=== PATIENT | male | born 1960 | race Two or more races ===

== ENCOUNTER 2018-01-23 11:33 | Observation (INO) | payer BC, OTHER ==
[2018-01-23] MEDS ORDERED: HYDROmorphone 1 MG/ML Syringe IVPUSH ONE (12:01)
--- NOTE | 2018-01-23 12:13 | EDM.PDOC ---
ED HPI GENERAL MEDICAL PROBLEM - General Chief Complaint: Trauma Stated Complaint: DIFFICULTY BREATHING AND FELL OFF A HORSE Time Seen by Provider: 01/23/18 12:08 - History of Present Illness INITIAL COMMENTS - FREE TEXT/NARRATIVE: HISTORY AND PHYSICAL: History of present illness: Patient's 57-year-old white male presents status post fall from a horse in which he injured his upper and lower back and right side he denies loss of consciousness he has pleuritic chest discomfort with this denies nausea vomiting denies numbness or weakness. Review of systems: As per history of present illness and below otherwise all systems reviewed and negative. Past medical history: As per history of present illness and as reviewed below otherwise noncontributory. Surgical history: As per history of present illness and as reviewed below otherwise noncontributory. Social history: No reported history of drug or alcohol abuse. Family history: As per history of present illness and as reviewed below otherwise noncontributory. Physical exam: HEENT: Prosthetic right ear noted otherwise Atraumatic, normocephalic, pupils reactive, negative for conjunctival pallor or scleral icterus, mucous membranes moist, throat clear, neck supple, nontender, trachea midline. Lungs: Clear to auscultation, breath sounds equal bilaterally, chest nontender. Heart: S1S2, regular, negative for clicks, rubs, or JVD. Abdomen: Soft, nondistended, nontender. Negative for masses or hepatosplenomegaly. Negative for costovertebral tenderness. Pelvis: Stable nontender. Genitourinary: Deferred. Rectal: Deferred. Extremities: Atraumatic, negative for cords or calf pain. Neurovascular unremarkable. Neuro: Awake, alert, oriented. Cranial nerves II through XII unremarkable. Cerebellum unremarkable. Motor and sensory unremarkable throughout. Exam nonfocal. Back: Patient has some right posterior rib tenderness is nonlocalizing no crepitation. Diagnostics: CT brain C-spine chest abdomen pelvis with thoracic lumbar reconstruction Therapeutics: Dilaudid 1 mg IV Zofran 4 mg IV when necessary Impression: #1 observation status post fall from horse #2 multiple blunt trauma Definitive disposition and diagnosis as appropriate pending reevaluation and review of above. Right upper back Pain Score (Numeric/FACES): 8 - Related Data Allergies Allergy/AdvReac Type Severity Reaction Status Date / Time No Known Allergies Allergy Verified 04/18/16 14:25 Home Meds: Home Meds . [No Known Home Meds] 01/23/18 [History] Past Medical History Cardiovascular History: Reports: Hypertension Endocrine/Metabolic History: Reports: Diabetes, Type II, Obesity/BMI 30+ Social & Family History - Family History Family Medical History: Noncontributory - Tobacco Use Smoking Status *Q: Never Smoker - Recreational Drug Use Recreational Drug Use: No Review of Systems - Review of Systems Review Of Systems: ROS reveals no pertinent complaints other than HPI. ED EXAM, GENERAL - Physical Exam Exam: See Below (See dictation) Course - Vital Signs Last Recorded V/S: Last Vital Signs Temp 36.3 C 01/23/18 11:33 Pulse 89 01/23/18 11:33 Resp 20 01/23/18 11:33 BP 149/90 H 01/23/18 11:33 Pulse Ox 95 01/23/18 11:33 - Orders/Labs/Meds Orders: Active Orders 24 hr Category Date Time Status EKG 12 Lead [EKG Documentation Completion] [RC] STAT Care 01/23/18 13:01 Active Abdomen Pelvis w Cont [CT] Stat Exams 01/23/18 11:37 Taken Cervical Spine wo Cont [CT] Stat Exams 01/23/18 11:35 Taken Chest w Cont [CT] Stat Exams 01/23/18 11:35 Taken Head wo Cont [CT] Stat Exams 01/23/18 11:35 Taken Lumbar Spine wo Cont [CT] Stat Exams 01/23/18 11:35 Taken Thoracic Spine wo Cont [CT] Stat Exams 01/23/18 11:35 Taken COMPREHENSIVE METABOLIC PN,CMP [CHEM] Stat Lab 01/23/18 11:40 Received INR,PT,PROTHROMBIN TIME [COAG] Stat Lab 01/23/18 11:40 Received Labs: Laboratory Tests 01/23/18 Range/Units 11:40 WBC 7.35 (4.0-11.0) K/uL RBC 5.56 (4.50-5.90) M/uL Hgb 16.9 (13.0-17.0) g/dL Hct 48.4 (38.0-50.0) % MCV 87.1 (80.0-98.0) fL MCH 30.4 (27.0-32.0) pg MCHC 34.9 (31.0-37.0) g/dL RDW Std Deviation 41.7 (28.0-62.0) fl RDW Coeff of Alejnadra 13 (11.0-15.0) % Plt Count 166 (150-400) K/uL MPV 10.90 (7.40-12.00) fL Neut % (Auto) 65.0 (48.0-80.0) % Lymph % (Auto) 22.9 (16.0-40.0) % [place] % (Auto) 9.7 (0.0-15.0) % Eos % (Auto) 1.9 (0.0-7.0) % Baso % (Auto) 0.5 (0.0-1.5) % Neut # (Auto) 4.8 (1.4-5.7) K/uL Lymph # (Auto) 1.7 (0.6-2.4) K/uL [place] # (Auto) 0.7 (0.0-0.8) K/uL Eos # (Auto) 0.1 (0.0-0.7) K/uL Baso # (Auto) 0.0 (0.0-0.1) K/uL Nucleated RBC % 0.0 /100WBC Nucleated RBCs # 0 K/uL Meds: Medications Discontinued Medications Generic Name Dose Route Start Last Admin Trade Name Freq PRN Reason Stop Dose Admin Hydromorphone HCl 1 mg 01/23/18 12:01 01/23/18 12:09 Dilaudid IVPUSH 01/23/18 12:02 1 mg ONETIME ONE Administration Iopamidol 96 ml 01/23/18 12:20 01/23/18 12:21 Isovue Multipack-370 (76%) IVPUSH 01/23/18 12:21 96 ml ONETIME ONE Administration Departure - Departure Time of Disposition: 13:19 Disposition: Refer to Observation Condition: Good Clinical Impression: Multiple rib fractures, Trauma - Discharge Information Referrals: PCP,None [Primary Care Provider] - Forms: ED Department Discharge - My Orders Last 24 Hours: My Active Orders 01/23/18 11:35 Cervical Spine wo Cont [CT] Stat Chest w Cont [CT] Stat Head wo Cont [CT] Stat Lumbar Spine wo Cont [CT] Stat Thoracic Spine wo Cont [CT] Stat 01/23/18 11:37 Abdomen Pelvis w Cont [CT] Stat 01/23/18 11:40 COMPREHENSIVE METABOLIC PN,CMP [CHEM] Stat INR,PT,PROTHROMBIN TIME [COAG] Stat 01/23/18 13:01 EKG 12 Lead [EKG Documentation Completion] [RC] STAT - Assessment/Plan Last 24 Hours: My Active Orders 01/23/18 11:35 Cervical Spine wo Cont [CT] Stat Chest w Cont [CT] Stat Head wo Cont [CT] Stat Lumbar Spine wo Cont [CT] Stat Thoracic Spine wo Cont [CT] Stat 01/23/18 11:37 Abdomen Pelvis w Cont [CT] Stat 01/23/18 11:40 COMPREHENSIVE METABOLIC PN,CMP [CHEM] Stat INR,PT,PROTHROMBIN TIME [COAG] Stat 01/23/18 13:01 EKG 12 Lead [EKG Documentation Completion] [RC] STAT
[2018-01-23] MEDS ORDERED: Iopamidol 755 MG/ML 200 ML Multipack Bottle IVPUSH ONE (12:20)
[2018-01-23 13:22] LABS: CHLORIDE,CL 102 mmol/L (98-107); SODIUM,NA 135 mmol/L (136-148)
--- NOTE | 2018-01-23 14:10 | PCM.HP ---
H&P History of Present Illness - General Date of Service: 01/23/18 Admit Problem/Dx: Admission Diagnosis/Problem Admission Diagnosis/Problem Trauma of chest Source of Information: Patient History Limitations: Reports: No Limitations - History of Present Illness Initial Comments - Free Text/Narative: Patient was riding a horse today when he was bucked off. He fell on his right shoulder and had loss of conciousness. He woke up and had difficulty breathing. He got up and walked to help. He finds that sitting up and coughing causes pain along his upper chest and shoulder. He denies fevers, chills, nausea, vomiting, loss of motor or neurologic function. Denies pain anywhere else. He was brought here by his . CT head, cervical, thoracic, lumbar, chest abdomen and pelvis were normal other than posterior non-displaced rib fractures of the 3-6 on the right. Right upper back Pain Score (Numeric/FACES): 8 - Related Data Allergies/Adverse Reactions: Allergies Allergy/AdvReac Type Severity Reaction Status Date / Time No Known Allergies Allergy Verified 09/24/15 14:25 Home Medications: Home Meds . [No Known Home Meds] 01/23/18 [History] Past Medical History Cardiovascular History: Reports: Hypertension Respiratory History: Reports: Other (See Below) (Obstructive sleep apnea) Endocrine/Metabolic History: Reports: Diabetes, Type II, Obesity/BMI 30+ - Past Surgical History GI Surgical History: Reports: Appendectomy Social & Family History - Family History Family Medical History: Noncontributory - Tobacco Use Smoking Status *Q: Never Smoker - Recreational Drug Use Recreational Drug Use: No H&P Review of Systems - Review of Systems: Review Of Systems: ROS reveals no pertinent complaints other than HPI. General: Reports: No Symptoms HEENT: Reports: No Symptoms Pulmonary: Reports: Shortness of Breath, Pleuritic Chest Pain Cardiovascular: Reports: No Symptoms Gastrointestinal: Reports: No Symptoms Genitourinary: Reports: No Symptoms Musculoskeletal: Reports: No Symptoms Skin: Reports: No Symptoms Neurological: Reports: No Symptoms Exam - Exam Exam: See Below - Vital Signs Vital Signs: Last Vital Signs Temp 36.3 C 01/23/18 11:33 Pulse 89 01/23/18 11:33 Resp 20 01/23/18 11:33 BP 149/90 H 01/23/18 11:33 Pulse Ox 95 01/23/18 11:33 Weight: 143 kg - Exam General: Alert, Oriented, Cooperative HEENT: Conjunctiva Clear, Hearing Intact, Mucosa Moist & Grubbs, Nares Patent, Posterior Pharynx Clear, Pupils Equal, Pupils Reactive Neck: Supple, Trachea Midline Lungs: Clear to Auscultation, Decreased Breath Sounds (bilateral bases), Other ( Patient splinting with breathing and taking shorter than normal breaths ) Cardiovascular: Regular Rate, Regular Rhythm GI/Abdominal Exam: Soft, Non-Tender, No Distention, No Mass Back Exam: Normal Inspection, Full Range of Motion Extremities: Normal Inspection, Normal Range of Motion, Non-Tender Skin: Warm, Dry, Intact Neurological: Cranial Nerves Intact Neuro Extensive - Mental Status: Alert, Oriented x3, Normal Mood/Affect - Patient Data Lab Results Last 24 hrs: Laboratory Results - last 24 hr 01/23/18 01/23/18 01/23/18 Range/Units 11:40 11:40 11:40 WBC 7.35 (4.0-11.0) K/uL RBC 5.56 (4.50-5.90) M/uL Hgb 16.9 (13.0-17.0) g/dL Hct 48.4 (38.0-50.0) % MCV 87.1 (80.0-98.0) fL MCH 30.4 (27.0-32.0) pg MCHC 34.9 (31.0-37.0) g/dL RDW Std Deviation 41.7 (28.0-62.0) fl RDW Coeff of Alejandra 13 (11.0-15.0) % Plt Count 166 (150-400) K/uL MPV 10.90 (7.40-12.00) fL Neut % (Auto) 65.0 (48.0-80.0) % Lymph % (Auto) 22.9 (16.0-40.0) % [place] % (Auto) 9.7 (0.0-15.0) % Eos % (Auto) 1.9 (0.0-7.0) % Baso % (Auto) 0.5 (0.0-1.5) % Neut # (Auto) 4.8 (1.4-5.7) K/uL Lymph # (Auto) 1.7 (0.6-2.4) K/uL [place] # (Auto) 0.7 (0.0-0.8) K/uL Eos # (Auto) 0.1 (0.0-0.7) K/uL Baso # (Auto) 0.0 (0.0-0.1) K/uL Nucleated RBC % 0.0 /100WBC Nucleated RBCs # 0 K/uL INR 1.09 Sodium 135 L (136-148) mmol/L Potassium 3.9 (3.5-5.1) mmol/L Chloride 102 (98-107) mmol/L Carbon Dioxide 24.3 (21.0-32.0) mmol/L BUN 14 (7.0-18.0) mg/dL Creatinine 1.1 (0.8-1.3) mg/dL Est Cr Clr Drug Dosing 79.86 mL/min Estimated GFR (MDRD) > 60.0 ml/min Glucose 345 H (74-106) mg/dL Calcium 8.7 (8.5-10.1) mg/dL Total Bilirubin 0.5 (0.2-1.0) mg/dL AST 79 H (15-37) IU/L ALT 111 H (14-63) IU/L Alkaline Phosphatase 121 H (46-116) U/L Total Protein 7.9 (6.4-8.2) g/dL Albumin 3.7 (3.4-5.0) g/dL Globulin 4.2 H (2.0-3.5) g/dL Albumin/Globulin Ratio 0.9 L (1.3-2.8) Result Diagrams: 01/23/18 11:40 01/23/18 11:40 - Problem List (1) Loss of consciousness SNOMED Code(s): 223142118, 361074778 ICD Code: R40.20 - UNSPECIFIED COMA Status: Acute Current Visit: Yes (2) Contusion of wrist, right SNOMED Code(s): 75239646886751759 ICD Code: S60.211A - CONTUSION OF RIGHT WRIST, INITIAL ENCOUNTER Status: Acute Current Visit: No Qualifiers: Encounter type: initial encounter Qualified Code(s): S60.211A - Contusion of right wrist, initial encounter (3) Multiple rib fractures SNOMED Code(s): 7388890 ICD Code: S22.49XA - MULTIPLE FRACTURES OF RIBS, UNSP SIDE, INIT FOR CLOS FX Status: Acute Current Visit: Yes Problem List Initiated/Reviewed/Updated: Yes Orders Last 24hrs: Active Orders 24 hr Category Date Time Status Admission Status [Patient Status] [ADT] Stat ADT 01/23/18 13:19 Active EKG 12 Lead [EKG Documentation Completion] [RC] STAT Care 01/23/18 13:01 Active Abdomen Pelvis w Cont [CT] Stat Exams 01/23/18 11:37 Taken Cervical Spine wo Cont [CT] Stat Exams 01/23/18 11:35 Taken Chest w Cont [CT] Stat Exams 01/23/18 11:35 Taken Head wo Cont [CT] Stat Exams 01/23/18 11:35 Taken Lumbar Spine wo Cont [CT] Stat Exams 01/23/18 11:35 Taken Thoracic Spine wo Cont [CT] Stat Exams 01/23/18 11:35 Taken Assessment/Plan Comment:: Will watch patient overnight given multiple rib fractures and MARCOS. will be bringing his CPAP from home to use tonight. Pain control with IV dilaudid, percocet, toradol, and flexeril.
[2018-01-23] MEDS ORDERED: Acetaminophen/oxyCODONE 325-5 MG Tab PO PRN (14:14)
[2018-01-23] MEDS ORDERED: HYDROmorphone 2 MG/ML Syringe IVPUSH PRN (14:15)
[2018-01-23] MEDS ORDERED: Cyclobenzaprine 5 MG Tab PO PRN (14:15)
[2018-01-23] MEDS ORDERED: diphenhydrAMINE 25 MG Cap PO PRN (14:16)
[2018-01-23] MEDS ORDERED: Ondansetron 4 MG/2 ML SDV IVPUSH PRN (14:16)
[2018-01-23] MEDS ORDERED: HYDROmorphone 1 MG/ML Syringe ONE (14:54)
[2018-01-23] MEDS ORDERED: HYDROmorphone 2 MG/ML SDV IVPUSH PRN (15:00)
[2018-01-23] MEDS: Ketorolac 10 MG Tab PO SCH ×2 (15:10→21:05)
[2018-01-23] MEDS: Insulin Aspart 100 Units/ML 3 ML Pen SUBCUT SCH (17:54)
[2018-01-24] MEDS: Ketorolac 10 MG Tab PO SCH ×2 (01:33→08:17)
[2018-01-24 03:38] VITALS: BP 157/90
[2018-01-24] MEDS: Insulin Aspart 100 Units/ML 3 ML Pen SUBCUT SCH (07:32)
--- NOTE | 2018-01-24 08:40 | PCM.DCSUM1 ---
Discharge Summary - Hospital Course Free Text/Narrative:: Rib fractures, loc HPI Initial Comments: Patient was riding a horse today when he was bucked off. He fell on his right shoulder and had loss of conciousness. He woke up and had difficulty breathing. He got up and walked to help. He found that sitting up and coughing caused pain along his upper chest and shoulder. He denied fevers, chills, nausea, vomiting, loss of motor or neurologic function. Denies pain anywhere else. He was brought here by his . CT head, cervical, thoracic, lumbar, chest abdomen and pelvis were normal other than posterior non-displaced rib fractures of the 3-6 on the right. He was admitted overnight for close monitoring of his respiratory status. His hgb A1C was 8.8 as he has type 2 DM and does not treat it. His blood sugars ran high and he was placed on low dose sliding scale insulin. He was stable overnight with his BIPAP. He was scheduled on Toradol and did well with this. He was ambulating and pain free this morning. He was cleared for discharge. - Discharge Data Discharge Date: 01/24/18 Discharge Disposition: Home, Self-Care 01 Condition: Fair - Discharge Diagnosis/Problem(s) (1) Loss of consciousness SNOMED Code(s): 035325288, 183393756 ICD Code: R40.20 - UNSPECIFIED COMA Status: Acute Current Visit: Yes (2) Contusion of wrist, right SNOMED Code(s): 38293112084023660 ICD Code: S60.211A - CONTUSION OF RIGHT WRIST, INITIAL ENCOUNTER Status: Acute Current Visit: No Qualifiers: Encounter type: initial encounter Qualified Code(s): S60.211A - Contusion of right wrist, initial encounter (3) Multiple rib fractures SNOMED Code(s): 3781758 ICD Code: S22.49XA - MULTIPLE FRACTURES OF RIBS, UNSP SIDE, INIT FOR CLOS FX Status: Acute Current Visit: Yes - Patient Summary/Data Consults: Consultations 01/23/18 14:16 Respiratory Care Assess and Treatment [CONS] Routine - Patient Instructions Diet: Regular Diet as Tolerated Activity: No Lifting Over 25 Pounds (for two weeks ), No Strenuous Activities ( for two weeks ), Rest and Relax Today Driving: Do Not Drive (for a couple days ) Showering/Bathing: October Shower Notify Provider of: Fever, Increased Pain Other/Special Instructions: Follow up with pcp for diabetes management - Discharge Plan *PRESCRIPTION DRUG MONITORING PROGRAM REVIEWED*: Yes *COPY OF PRESCRIPTION DRUG MONITORING REPORT IN PATIENT FREDY: Yes Home Medications: Home Meds . [No Known Home Meds] 01/23/18 [History] Forms: ED Department Discharge Referrals: PCP,None [Primary Care Provider] - - Discharge Summary/Plan Comment DC Time >30 min.: No - General Info Functional Status: Reports: Pain Controlled, Tolerating Diet, Ambulating, Urinating - Review of Systems General: Reports: No Symptoms Pulmonary: Reports: No Symptoms Cardiovascular: Reports: No Symptoms Gastrointestinal: Reports: No Symptoms Musculoskeletal: Reports: No Symptoms - Patient Data Vitals - Most Recent: Last Vital Signs Temp 36.2 C 01/24/18 03:37 Pulse 67 01/24/18 03:37 Resp 18 01/24/18 03:37 BP 157/90 H 01/24/18 03:37 Pulse Ox 96 01/24/18 03:39 Weight - Most Recent: 143.244 kg I&O - Last 24 hours: Intake & Output 01/23/18 01/24/18 01/24/18 22:59 06:59 14:59 Intake Total 600 Balance 600 Lab Results - Last 24 hrs: Laboratory Results - last 24 hr 01/23/18 01/23/18 01/23/18 Range/Units 11:40 11:40 11:40 WBC 7.35 (4.0-11.0) K/uL RBC 5.56 (4.50-5.90) M/uL Hgb 16.9 (13.0-17.0) g/dL Hct 48.4 (38.0-50.0) % MCV 87.1 (80.0-98.0) fL MCH 30.4 (27.0-32.0) pg MCHC 34.9 (31.0-37.0) g/dL RDW Std Deviation 41.7 (28.0-62.0) fl RDW Coeff of Alejandra 13 (11.0-15.0) % Plt Count 166 (150-400) K/uL MPV 10.90 (7.40-12.00) fL Neut % (Auto) 65.0 (48.0-80.0) % Lymph % (Auto) 22.9 (16.0-40.0) % [place] % (Auto) 9.7 (0.0-15.0) % Eos % (Auto) 1.9 (0.0-7.0) % Baso % (Auto) 0.5 (0.0-1.5) % Neut # (Auto) 4.8 (1.4-5.7) K/uL Lymph # (Auto) 1.7 (0.6-2.4) K/uL [place] # (Auto) 0.7 (0.0-0.8) K/uL Eos # (Auto) 0.1 (0.0-0.7) K/uL Baso # (Auto) 0.0 (0.0-0.1) K/uL Nucleated RBC % 0.0 /100WBC Nucleated RBCs # 0 K/uL INR 1.09 Sodium 135 L (136-148) mmol/L Potassium 3.9 (3.5-5.1) mmol/L Chloride 102 (98-107) mmol/L Carbon Dioxide 24.3 (21.0-32.0) mmol/L BUN 14 (7.0-18.0) mg/dL Creatinine 1.1 (0.8-1.3) mg/dL Est Cr Clr Drug Dosing 79.86 mL/min Estimated GFR (MDRD) > 60.0 ml/min Glucose 345 H (74-106) mg/dL POC Glucose (60-110) mg/dL Hemoglobin A1c (4.5-6.2) % Calcium 8.7 (8.5-10.1) mg/dL Total Bilirubin 0.5 (0.2-1.0) mg/dL AST 79 H (15-37) IU/L ALT 111 H (14-63) IU/L Alkaline Phosphatase 121 H (46-116) U/L Total Protein 7.9 (6.4-8.2) g/dL Albumin 3.7 (3.4-5.0) g/dL Globulin 4.2 H (2.0-3.5) g/dL Albumin/Globulin Ratio 0.9 L (1.3-2.8) 01/23/18 01/23/18 01/24/18 Range/Units 11:40 16:47 06:30 WBC (4.0-11.0) K/uL RBC (4.50-5.90) M/uL Hgb (13.0-17.0) g/dL Hct (38.0-50.0) % MCV (80.0-98.0) fL MCH (27.0-32.0) pg MCHC (31.0-37.0) g/dL RDW Std Deviation (28.0-62.0) fl RDW Coeff of Alejandra (11.0-15.0) % Plt Count (150-400) K/uL MPV (7.40-12.00) fL Neut % (Auto) (48.0-80.0) % Lymph % (Auto) (16.0-40.0) % [place] % (Auto) (0.0-15.0) % Eos % (Auto) (0.0-7.0) % Baso % (Auto) (0.0-1.5) % Neut # (Auto) (1.4-5.7) K/uL Lymph # (Auto) (0.6-2.4) K/uL [place] # (Auto) (0.0-0.8) K/uL Eos # (Auto) (0.0-0.7) K/uL Baso # (Auto) (0.0-0.1) K/uL Nucleated RBC % /100WBC Nucleated RBCs # K/uL INR Sodium (136-148) mmol/L Potassium (3.5-5.1) mmol/L Chloride (98-107) mmol/L Carbon Dioxide (21.0-32.0) mmol/L BUN (7.0-18.0) mg/dL Creatinine (0.8-1.3) mg/dL Est Cr Clr Drug Dosing mL/min Estimated GFR (MDRD) ml/min Glucose (74-106) mg/dL POC Glucose 249 H 181 H (60-110) mg/dL Hemoglobin A1c 8.8 H (4.5-6.2) % Calcium (8.5-10.1) mg/dL Total Bilirubin (0.2-1.0) mg/dL AST (15-37) IU/L ALT (14-63) IU/L Alkaline Phosphatase (46-116) U/L Total Protein (6.4-8.2) g/dL Albumin (3.4-5.0) g/dL Globulin (2.0-3.5) g/dL Albumin/Globulin Ratio (1.3-2.8) Med Orders - Current: Current Medications Cyclobenzaprine HCl (Flexeril) 5 mg PO TID PRN PRN Reason: Pain Diphenhydramine HCl (Benadryl) 25 mg PO Q4H PRN PRN Reason: Itching Hydromorphone HCl (Dilaudid) 1 mg IVPUSH Q2H PRN PRN Reason: pain Last Admin: 01/23/18 19:33 Dose: 1 mg Insulin Aspart (Novolog) 0 unit SUBCUT TIDAC AMANUEL; Protocol Last Admin: 01/24/18 07:32 Dose: 1 units Ketorolac Tromethamine (Toradol) 10 mg PO Q6H [facility] Stop: 01/28/18 14:16 Last Admin: 01/24/18 08:17 Dose: 10 mg Ondansetron HCl (Zofran) 4 mg IVPUSH Q6H PRN PRN Reason: Nausea/Vomiting Oxycodone/Acetaminophen (Percocet 325-5 Mg) 2 tab PO Q4H PRN PRN Reason: Pain Discontinued Medications Hydromorphone HCl (Dilaudid) 1 mg IVPUSH ONETIME ONE Stop: 01/23/18 12:02 Last Admin: 01/23/18 12:09 Dose: 1 mg Hydromorphone HCl (Dilaudid) 1 mg IVPUSH Q2H PRN PRN Reason: pain Last Admin: 01/23/18 14:55 Dose: 1 mg Hydromorphone HCl (Dilaudid) Confirm Administered Dose 1 mg .ROUTE .STK-MED ONE Stop: 01/23/18 14:55 Last Admin: 01/23/18 15:03 Dose: Not Given Iopamidol (Isovue Multipack-370 (76%)) 96 ml IVPUSH ONETIME ONE Stop: 01/23/18 12:21 Last Admin: 01/23/18 12:21 Dose: 96 ml - Exam General: Reports: Alert, Oriented HEENT: Reports: Pupils Equal, Pupils Reactive Neck: Reports: Supple Lungs: Reports: Normal Respiratory Effort, Other (Slightly decreased breath sound on the right side, however moving air much better through the right side this morning. ) Cardiovascular: Reports: Regular Rate, Regular Rhythm GI/Abdominal Exam: Soft
--- NOTE | 2018-01-25 11:03 | CT ---
EXAM DATE: 01/23/18 PATIENT'S AGE: 57 Patient: DARÍO COTA Facility: [place], [place] Site . Site : 1960 Study: CT Head wo natividad [id number]/[id number] 12:05:16 PM Ordering Physician: Doctor Richards Final Report: INDICATION: Trauma. Bucked off horse. COMPARISON: none TECHNIQUE: A CT volumetric acquisition was performed of the brain without IV contrast. FINDINGS: There is no evidence of a subdural or epidural hematoma. There is no evidence of subarachnoid hemorrhage or intraparenchymal bleeding. The CT images reveal a normal appearance of the cerebral ventricles and basal cisterns. There is no evidence of localized tissue infarction or mass effect. There is normal pink white matter differentiation. The mastoid air cells and middle ear cavities are clear. The calvarium appears intact. There is normal aeration of the visualized paranasal sinuses. IMPRESSION: Negative head CT. Please note that all CT scans at this facility use dose modulation, iterative reconstruction, and/or weight-based dosing when appropriate to reduce radiation dose to as low as reasonably achievable. Dictated by Meir Mabry MD @ Jan 23 2018 12:24PM (Electronic Signature) Report Signed by Proxy. CAMILO
--- NOTE | 2018-01-25 11:04 | CT ---
EXAM DATE: 01/23/18 PATIENT'S AGE: 57 Patient: DARÍO COTA Facility: [place], [place] Site . Site : 1960 Study: CT Spine Cervical WO CONT [id number]/[id number] 12:05:54 PM Ordering Physician: Doctor Richards Final Report: INDICATION: Trauma. Bucked off horse. TECHNIQUE: A CT volumetric acquisition was performed of the cervical spine without IV contrast. FINDINGS: The cervical vertebral bodies appear anatomically aligned on the sagittal and coronal reformations. There is no evidence of a fracture or vertebral subluxation. Osteoarthritic changes are noted at the articulation of the odontoid process and anterior arch of C1. There is mild disc space narrowing at C5-6 and C6-7. The facet joints appear anatomically aligned and there is no evidence of a facet fracture. There is no evidence of a subdural or epidural or paraspinal hematoma. The larynx and subglottic trachea appear normal. IMPRESSION: No fracture identified within the cervical spine. Please note that all CT scans at this facility use dose modulation, iterative reconstruction, and/or weight-based dosing when appropriate to reduce radiation dose to as low as reasonably achievable. Dictated by Meir Mabry MD @ Jan 23 2018 12:27PM (Electronic Signature) Report Signed by Proxy. CAMILO
--- NOTE | 2018-01-25 11:05 | CT ---
EXAM DATE: 01/23/18 PATIENT'S AGE: 57 Patient: DARÍO COTA Facility: [place], [place] Site . Site : 1960 Study: CT Chest W CONT [id number]/18/2018 12:11:20 PM Ordering Physician: Doctor Richards Final Report: INDICATION: Patient bucked from a horse. Upper back pain and chest pain. TECHNIQUE: Volumetric CT acquisition of the chest following the administration of 100 mL Isovue-370 intravenous contrast. Multiplanar reconstruction. FINDINGS: The thyroid gland is bilaterally symmetrical displays homogeneous enhancement. Thoracic aorta normal in caliber and displays homogeneous enhancement. Major branch vessels of the thoracic aorta are intact. Right and left pulmonary arteries are unremarkable. The trachea and mainstem bronchi are intact and are patent. Both lungs are fully expanded. No focal lung contusion or parenchymal laceration. No air in the mediastinum. Bibasilar atelectasis. No pleural fluid. No abnormal pericardial fluid. Nondisplaced fractures of right ribs 3 through 6. Thoracic vertebral bodies are normal in height and alignment. No acute fracture in the thoracic spine or sternum. IMPRESSION: 1. Nondisplaced fractures of right ribs 3 through 6. 2. No pneumothorax. No parenchymal lung contusion or laceration. 3. Intact major vascular structures and airway. 4. No pleural fluid or hemorrhage. Please note that all CT scans at this facility use dose modulation, iterative reconstruction, and/or weight-based dosing when appropriate to reduce radiation dose to as low as reasonably achievable. Dictated by Liliana Roland MD @ Jan 23 2018 12:18PM (Electronic Signature) Report Signed by Proxy. [facility] HOSPITALFiona
--- NOTE | 2018-01-25 11:07 | CT ---
EXAM DATE: 01/23/18 PATIENT'S AGE: 57 Patient: DARÍO COTA Facility: [place], [place] Site . Site : 1960 Study: CT Abdomen/Pelvis W CONT [id number]/18/2018 12:17:42 PM Ordering Physician: Doctor Richards Final Report: INDICATION: Trauma; patient was Bucked off horse today; pain in upper back and chest. TECHNIQUE: CT abdomen and pelvis with intravenous contrast; coronal and sagittal reformats. FINDINGS: No abnormal intra pulmonary nodular densities through the lung bases. No evidence of pleural effusion. No pneumothorax. Normal size cardiac silhouette without any evidence of pericardial effusion. No focal hepatic or splenic pathology. Diffuse fatty liver. No pancreatic pathology. Gallbladder is unremarkable. No adrenal pathology. Symmetric perfusion of both the kidneys without any obstructive uropathy or perinephric pathology. Small cyst identified in the upper pole left kidney. No retroperitoneal lymphadenopathy. No evidence of abdominal or pelvic ascites. No intra-abdominal or retroperitoneal hemorrhage. CT study of the pelvis is unremarkable. No skeletal pathology. IMPRESSION: 1. Negative CT abdomen and pelvis with intravenous contrast. 2. Diffuse fatty liver. 3. Small benign cyst upper pole left kidney. Please note that all CT scans at this facility use dose modulation, iterative reconstruction, and/or weight-based dosing when appropriate to reduce radiation dose to as low as reasonably achievable. Dictated by Brian Gibbs MD @ Jan 23 2018 12:48PM (Electronic Signature) Report Signed by Proxy. [facility]
--- NOTE | 2018-01-25 11:08 | CT ---
EXAM DATE: 01/23/18 PATIENT'S AGE: 57 Patient: DARÍO COTA Facility: [place], [place] Site . Site : 1960 Study: CT Spine Thoracic [id number]/18/2018 12:18:36 PM Ordering Physician: Doctor Richards Final Report: INDICATION: Trauma; pain upper back and chest. COMPARISON: CT chest, abdomen and pelvis same date. TECHNIQUE: CT thoracic spine without intravenous contrast; coronal and sagittal reformats. FINDINGS: No evidence of fracture or dislocation involving the thoracic spine. No abnormal paraspinal soft tissue mass densities. Undisplaced fractures of the right 3rd, 4th, 5th and 6th posterior ribs. No pneumothorax or hemothorax. No evidence of pleural effusion. No evidence of mediastinal hematoma. Limited CT through the upper abdomen is unremarkable. Impression : Undisplaced fractures right 3rd, 4th, 5th and 6th posterior ribs. 1. No pneumothorax or hemothorax. 2. No evidence of pleural effusion. 3. Negative CT of the thoracic spine without any fracture. Please note that all CT scans at this facility use dose modulation, iterative reconstruction, and/or weight-based dosing when appropriate to reduce radiation dose to as low as reasonably achievable. Dictated by Brian Gibbs MD @ Jan 23 2018 1:00PM (Electronic Signature) Report Signed by Proxy. [facility]
--- NOTE | 2018-01-25 11:09 | CT ---
EXAM DATE: 01/23/18 PATIENT'S AGE: 57 Patient: DARÍO COTA Facility: [place], [place] Site . Site : 1960 Study: CT Spine Lumbar [id number]/18/2018 12:25:45 PM Ordering Physician: Doctor Richards Final Report: INDICATION: Trauma; back pain and chest pain. COMPARISON: CT chest, abdomen and pelvis is same date; CT thoracic spine same date. TECHNIQUE: CT lumbar sacral spine without intravenous contrast; coronal and sagittal reformats. FINDINGS: No evidence of acute fracture or dislocation. No evidence of spondylolysis or spondylolisthesis. Disk space narrowing and disc degeneration at L5-S1 with posterior osteophytes. No paraspinal hematoma. No evidence of soft tissue abnormalities. IMPRESSION: 1. No evidence of fracture or dislocation involving the lumbar sacral spine. 2. Disc space narrowing and disc degeneration L5-S1 with posterior osteophytes. Please note that all CT scans at this facility use dose modulation, iterative reconstruction, and/or weight-based dosing when appropriate to reduce radiation dose to as low as reasonably achievable. Dictated by Brian Gibbs MD @ Jan 23 2018 1:05PM (Electronic Signature) Report Signed by Proxy. [facility]ILO
== END 2018-01-24 09:08 | disposition home or self-care (01) ==
LOC: MW.ED 11:33 → MW.MS 13:19
PROVIDERS: ADMIT Surgery; ATTEND Surgery
DX: R40.20 Unspecified coma (principal); S22.49XA Multiple fractures of ribs, unspecified side, initial encounter for closed fracture; S60.211A Contusion of right wrist, initial encounter; G47.33 Obstructive sleep apnea (adult) (pediatric); Z99.89 Dependence on other enabling machines and devices; V80.010A Animal-rider injured by fall from or being thrown from horse in noncollision accident, initial encounter
CPT/HCPCS: 70450; 71260; 72125; 74177; 80053; 82962; 83036; 85025; 85610; 93005; 96374; 96376; 99285; A9270; G0378; J1170; J1815; Q9967; 72128-26; 72131-26; 99283